=== PATIENT | female | born 1985 | race Caucasian/White ===

== ENCOUNTER 2018-03-16 17:04 | Emergency (ER) | payer SELFPAY ==
[2018-03-16 17:07] VITALS: BP 121/85; PULSE 92; RESP 20; TEMP 37.1; O2SAT 99
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
[2018-03-16] MEDS: IBUPROFEN 400 MG TABLET PO (18:55)
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
[2018-03-16 19:41] VITALS: BP 121/83; PULSE 81; RESP 20; O2SAT 99
== END 2018-03-16 19:41 | disposition home or self-care (01) ==
PROVIDERS: Emergency Provider Nurse Practitioner Family; Family Provider Family Medicine; PCP Family Medicine
DX: M54.2 Cervicalgia (principal); V49.40XA Driver injured in collision with unspecified motor vehicles in traffic accident, initial encounter
CPT/HCPCS: 70450; 72125; 99282; 99284